=== PATIENT | male | born 1990 | race Caucasian/White ===

== ENCOUNTER 2018-02-13 17:13 | Emergency (ER) | payer OTHER ==
[~2018-02-13] VITALS: Ht 157.5 cm; Wt 46.0 kg
[2018-02-13 17:28] VITALS: BP 114/55; PULSE 79; RESP 20; TEMP 98.5; O2SAT 99
[2018-02-13 18:05] VITALS: BP 130/81; PULSE 71; RESP 18; O2SAT 100
[2018-02-13] MEDS ORDERED: MAGN100T2 PO (18:10)
[2018-02-13] MEDS ORDERED: [UNRECOGNIZED DRUG - CODE] PO (18:10)
--- NOTE | 2018-02-13 18:57 | PD ---
HPI Chief Complaint: GI Complaint Time Seen by Provider: 17:53 Travel History International Travel<30 days: No Contact w/Intl Traveler<30days: No Traveled to known affect area: No History of Present Illness HPI Patient is a 27-year-old male who presents the emergency room for evaluation of the hemorrhoid. Mom reports that she is a nurse, she is requesting a call to colorectal surgery so that patient can be seen in the office as soon as possible. Patient reports that he has had external hemorrhoid for the past few days, reports pain to his anus. Reports history of hemorrhoids in the past ( 2016) which required hemorrhoidectomy. Patient with no other complaints at this time. PFSH Past Medical History Pneumonia: Yes Past Surgical History Appendectomy: Yes Other Surgery: Yes (HEMMORIDS ) Social History Alcohol Use: No Tobacco Use: No Substance Use: No Allergies-Medications Reported Meds & Prescriptions Reported Meds & Active Scripts Active Reported Fish Oil Concentrate ([place]-3 Fatty Acids) 1,000 Mg Capsule 1,000 Mg PO DAILY Magnesium Citrate 100 Mg Tab 200 Mg PO DAILY PRN Review of Systems General / Constitutional: No: Fever Eyes: No: Visual changes HENT: No: Headaches Cardiovascular: No: Chest Pain or Discomfort Respiratory: No: Shortness of Breath Gastrointestinal: No: Abdominal Pain Genitourinary: Positive: Other (hemorroid pain), No: Dysuria Musculoskeletal: No: Pain Skin: No Rash Neurologic: No: Weakness Psychiatric: No: Depression Endocrine: No: Polydipsia Hematologic/Lymphatic: No: Easy Bruising Physical Exam Narrative GENERAL: Well-nourished, well-developed patient. SKIN: Focused skin assessment warm/dry. HEAD: Normocephalic. EYES: No scleral icterus. No injection or drainage. NECK: Supple, trachea midline. No JVD or lymphadenopathy. CARDIOVASCULAR: Regular rate and rhythm without murmurs, gallops, or rubs. RESPIRATORY: Breath sounds equal bilaterally. No accessory muscle use. GASTROINTESTINAL: Abdomen soft, non-tender, nondistended. Exam performed with RN at bedside, patient with a 3x3cm nonthrombosed external hemorrhoid MUSCULOSKELETAL: No cyanosis, or edema. BACK: Nontender without obvious deformity. No CVA tenderness. Data Data Last Documented VS Vital Signs Date Time Temp Pulse Resp B/P (MAP) Pulse Ox O2 Delivery O2 Flow Rate FiO2 02/13/18 18:05 71 18 130/81 (97) 100 Room Air 02/13/18 17:28 98.5 MDM Medical Decision Making Medical Screen Exam Complete: Yes Emergency Medical Condition: Yes Medical Record Reviewed: Yes Interpretation(s) Vital Signs Date Time Temp Pulse Resp B/P (MAP) Pulse Ox O2 Delivery O2 Flow Rate FiO2 02/13/18 18:05 71 18 130/81 (97) 100 Room Air 02/13/18 17:28 98.5 79 20 114/55 (74) 99 Differential Diagnosis External hemorrhoid Narrative Course Case reviewed with Dr. Lugo, colorectal surgery, patient can be seen in the office on Friday at 10am at the [facility] Diagnosis Primary Impression: External hemorrhoid Referrals: Simba Lugo MD Patient Instructions: General Instructions Additional Instructions: Please follow-up with Dr. Lugo in the office on Friday morning at 10 AM at the [facility] Dr. Simba Lugo [address] [place] [phone] Disposition: 01 DISCHARGE HOME Condition: Stable Kymberly Barreto DO Feb 13, 2018 18:57
== END 2018-02-13 19:25 | disposition home or self-care (01) ==
LOC: NEPC 17:13
DX: K64.4 Residual hemorrhoidal skin tags (principal)
CPT/HCPCS: 99281